=== PATIENT | female | born 1995 | race Hispanic/Latino ===

== ENCOUNTER 2017-11-29 19:26 | Emergency (ER) | payer MEDICAID, OTHER | END 2017-11-29 19:47 | disposition home or self-care (01) | LOC: EDH 19:26 | DX: J01.90 Acute sinusitis, unspecified (principal); Z98.890 Other specified postprocedural states | CPT/HCPCS: 99282 ==

== ENCOUNTER 2019-10-09 17:16 | Emergency (ER) | payer MEDICAID ==
[2019-10-09 18:47] LABS: BASOPHILS % (AUTO) 0.4 % (0.0-5.0); EOSINOPHILS % (AUTO) 0.3 % (0.0-8.0); HEMATOCRIT 42.1 % (36-48); LYMPHOCYTES % (AUTO) 18.2 % (21.0-51.0); MEAN CORPUSCULAR HEMOGLOBIN 24.2 pg (27.0-33.0); MEAN CORPUSCULAR HGB CONC 31.4 g/dL (32.0-36.0); MEAN CORPUSCULAR VOLUME 77.3 fL (79-99); MONOCYTES % (AUTO) 5.5 % (3.0-13.0); NEUTROPHILS % (AUTO) 75.6 % (40.0-77.0); PLATELET COUNT (AUTO) 234 K/uL (130-400); RED BLOOD CELL COUNT(AUTO) 5.45 MIL/uL (4.00-5.50); RED CELL DISTRIBUTION WIDTH 26.1 % (11.0-15.5); WHITE BLOOD COUNT (AUTO) 10.7 K/uL (4.8-10.8)
== END 2019-10-09 19:21 | disposition home or self-care (01) ==
LOC: EDH 17:16
DX: O20.0 Threatened abortion (principal); Z3A.01 Less than 8 weeks gestation of pregnancy
CPT/HCPCS: 36415; 76817; 84702; 85025; 86900; 86901

== ENCOUNTER 2022-04-13 01:17 | Emergency (ER) | payer MEDICAID ==
[~2022-04-13] VITALS: Ht 152.4 cm; Wt 167.8 kg
[2022-04-13 01:30] LABS: BASOPHILS % (AUTO) 0.2 % (0.0-5.0); EOSINOPHILS % (AUTO) 0.9 % (0.0-8.0); HEMATOCRIT 38.6 % (36-48); LYMPHOCYTES % (AUTO) 28.9 % (21.0-51.0); MEAN CORPUSCULAR HEMOGLOBIN 20.5 pg (27.0-33.0); MEAN CORPUSCULAR HGB CONC 27.7 g/dL (32.0-36.0); MEAN CORPUSCULAR VOLUME 73.9 fL (79-99); MONOCYTES % (AUTO) 7.8 % (3.0-13.0); NEUTROPHILS % (AUTO) 61.8 % (40.0-77.0); PLATELET COUNT (AUTO) 279 K/uL (130-400); RED BLOOD CELL COUNT(AUTO) 5.22 MIL/uL (4.00-5.50)
[2022-04-13 01:39] LABS: CREATININE 0.8 mg/dL (0.5-1.5); POTASSIUM 3.6 mmol/L (3.5-5.1)
[2022-04-13 01:42] LABS: APPEARANCE,URINE CLEAR (CLEAR); BILIRUBIN,URINE NEGATIVE (NEGATIVE); COLOR,URINE YELLOW (YELLOW); GLUCOSE, URINE (UA) NEGATIVE (NEGATIVE); KETONES,URINE 5 mg/dL (NEGATIVE); LEUKOCYTE ESTERASE ,URINE NEGATIVE (NEGATIVE); NITRATE,URINE NEGATIVE (NEGATIVE); OCCULT BLOOD,URINE NEGATIVE (NEGATIVE); PROTEIN,URINE NEGATIVE (NEGATIVE); UROBILINOGEN,URINE 0.2 mg/dL (0.2-1.0)
[2022-04-13 01:43] LABS: HCG,QUAL RESULT NEGATIVE (NEGATIVE)
[2022-04-13 01:44] LABS: ALBUMIN 3.4 g/dL (3.5-5.0); BILIRUBIN,TOTAL 0.3 mg/dL (0.2-1.0); TOTAL PROTEIN, SERUM 7.6 g/dL (6.0-8.3)
[2022-04-13] MEDS ORDERED: FAMO-136 PO (06:43)
[2022-04-13 06:47] VITALS: BP 138/85
== END 2022-04-13 06:54 | disposition home or self-care (01) ==
LOC: EDH 01:17
DX: R07.89 Other chest pain (principal); D64.9 Anemia, unspecified; R20.2 Paresthesia of skin; E78.00 Pure hypercholesterolemia, unspecified; I10 Essential (primary) hypertension
CPT/HCPCS: 36415; 71045; 80053; 81003; 81025; 84484; 85025; 93005